=== PATIENT | female | born 2000 | race Hispanic/Latino ===

== ENCOUNTER 2022-04-13 16:34 | Emergency (ER) | payer MEDICAID | END 2022-04-13 17:25 | disposition home or self-care (01) | LOC: ERS 16:34 | DX: J02.9 Acute pharyngitis, unspecified (principal) | CPT/HCPCS: 99282 ==

== ENCOUNTER 2025-05-27 06:50 | Emergency (ER) | payer OTHER, SELFPAY | END 2025-05-27 08:02 | disposition home or self-care (01) | LOC: ERS 06:50 | DX: J06.9 Acute upper respiratory infection, unspecified (principal) | CPT/HCPCS: 87428; 99283 ==